=== PATIENT | female | born 1975 | race Two or more races ===

== ENCOUNTER 2019-04-04 15:57 | Emergency (ER) | payer MEDICAID, OTHER ==
[~2019-04-04] VITALS: Ht 157.5 cm; Wt 73.9 kg
[2019-04-04 16:09] VITALS: BP 155/84
[2019-04-04] MEDS ORDERED: HYDROcodone-ACET 5/325MG TAB PO ONE (19:00)
[2019-04-04] MEDS ORDERED: BACLOFEN 10 MG TAB PO ONE (19:00)
== END 2019-04-04 20:04 | disposition home or self-care (01) ==
LOC: ER 16:08
DX: M62.830 Muscle spasm of back (principal); M54.2 Cervicalgia; M54.5 Low back pain; V49.49XA Driver injured in collision with other motor vehicles in traffic accident, initial encounter; Y93.89 Activity, other specified; Y99.8 Other external cause status; Y92.89 Other specified places as the place of occurrence of the external cause
CPT/HCPCS: 72125; 72131